=== PATIENT | male | born 1950 | race African-American/Black ===

== ENCOUNTER 2016-12-16 14:39 | Emergency (ER) | payer MEDICARE, OTHER ==
[~2016-12-16] VITALS: Ht 193 cm; Wt 106.8 kg
[~2016-12-16 14:39] MED LIST: ASPI325T6 PO; ASPIRIN 81M81 MG/TA2 PO; BACTRIM DS 8001 TAB PO; CRESTOR 10MG10 MG PO; IRON325 MG PO; MULTI VITAMINS1 TAB PO; NEXIUM 20MG20 MG PO; NITROSTAT0.4 MG/TAB SL; OSCAL 500 TAB500 MG PO; UNKNOWN CHOLESTEROL
[2016-12-16 14:47] VITALS: BP 109/78; TEMP 99.7
[2016-12-16 15:51] LABS: ADJUSTED CALCIUM 9.1 mg/dL (8.4-10.2); ALBUMIN 4.1 gm/dL (3.5-5.0); BILIRUBIN,TOTAL 1.7 mg/dL (0.0-1.0); C-REACTIVE PROTEIN 1.7 mg/dL (0.0-0.9); CALCIUM 9.2 mg/dL (8.4-10.2); POTASSIUM 4.3 mmol/L (3.4-5.0)
[2016-12-16 15:52] LABS: BASO % 0.3 % (0.0-2.0); EOS % 0.7 % (0-4.0); GRAN # 3.1 (1.4-6.5); GRAN % 53.1 % (42.2-75.2); HEMATOCRIT 43.6 % (42.0-52.0); HEMOGLOBIN 13.7 g/dl (13.5-18.0); LYMPH # 2.1 (1.2-3.4); LYMPH % 36.7 % (20.0-51.0); MEAN CELL VOLUME 92 fl (80.0-100.0); MEAN CORPUSCULAR HEMOGLOBIN 29 pg (27.0-31.0); MEAN CORPUSCULAR HGB CONC 31 g/dl (33.0-37.0); MEAN PLATELET VOLUME 10.1 fl (7.4-10.4); MONO # 0.5 (0.1-0.6); PLATELET COUNT 172 K/mm3 (130-400); RED BLOOD COUNT 4.75 M/mm3 (4.20-5.60); REDCELL DISTRIBUTION WIDTH-CV 14.6 % (11.5-14.5); WHITE BLOOD COUNT 5.8 K/mm3 (4.8-10.8)
[2016-12-16 16:51] LABS: PH 5 (5-8); SQUAMOUS EPITHELIAL 0-2 /hpf; URINE APPEARANCE Clear; URINE BACTERIA None Seen /hpf; URINE BILIRUBIN Negative (NEGATIVE); URINE BLOOD Negative (NEGATIVE); URINE COLOR Yellow; URINE GLUCOSE Negative (NEGATIVE); URINE KETONE Negative (NEGATIVE); URINE RBC 0-2 /hpf; URINE WBC 0-2 /hpf
[2016-12-16] MEDS ORDERED: VOLTAREN 75 DR75 MG PO (17:06)
[2016-12-16] MEDS ORDERED: PREDNISONE20 MG PO (17:06)
[2016-12-16 17:17] VITALS: PULSE 66
== END 2016-12-16 17:17 | disposition home or self-care (01) ==
LOC: COL.ER 14:39
PROVIDERS: Emergency Medicine
DX: M70.72 Other bursitis of hip, left hip (principal); E78.5 Hyperlipidemia, unspecified; K21.9 Gastro-esophageal reflux disease without esophagitis; I71.4 Abdominal aortic aneurysm, without rupture; Z79.82 Long term (current) use of aspirin
CPT/HCPCS: J1885; J2930; J7040

== ENCOUNTER 2017-12-04 21:10 | Inpatient (IN) | payer MEDICARE, OTHER ==
[~2017-12-04] VITALS: Ht 193 cm; Wt 108.2 kg
[~2017-12-04 21:10] MED LIST changes: +PREDNISONE20 MG PO; +VOLTAREN 75 DR75 MG PO
[2017-12-04 21:57] LABS: BASO % 0.3 % (0.0-2.0); EOS % 0.4 % (0-4.0); GRAN # 3.5 (1.4-6.5); GRAN % 51.5 % (42.2-75.2); HEMATOCRIT 43.6 % (42.0-52.0); HEMOGLOBIN 13.5 g/dl (13.5-18.0); LYMPH # 2.6 (1.2-3.4); LYMPH % 38.9 % (20.0-51.0); MEAN CELL VOLUME 94 fl (80.0-100.0); MEAN CORPUSCULAR HEMOGLOBIN 29 pg (27.0-31.0); MEAN CORPUSCULAR HGB CONC 31 g/dl (33.0-37.0); MEAN PLATELET VOLUME 10.5 fl (7.4-10.4); MONO # 0.6 (0.1-0.6); MONO % 8.6 % (1.7-9.3); PLATELET COUNT 184 K/mm3 (130-400); RED BLOOD COUNT 4.64 M/mm3 (4.20-5.60); REDCELL DISTRIBUTION WIDTH-CV 14.5 % (11.5-14.5)
[2017-12-04 22:02] LABS: INR 0.9 (0.8-3.0); PROTHROMBIN TIME 10.3 SECONDS (9.7-12.8)
[2017-12-04 22:04] LABS: BILIRUBIN,TOTAL 0.8 mg/dL (0.0-1.0); CREATININE, serum 1.2 mg/dL (0.66-1.25); POTASSIUM 4.1 mmol/L (3.4-5.0)
[2017-12-04 22:16] LABS: TROPONIN-I 0.02 ng/mL (0.000-0.034)
[2017-12-04] MEDS ORDERED: DEPO-TESTOS200 MG/M1 IM (23:03)
[2017-12-04] MEDS ORDERED: FLOMAX 0.40.4 MG/CAP PO (23:04)
[2017-12-04] MEDS ORDERED: COLACE 100100 MG/CAP PO (23:05)
[2017-12-04] MEDS ORDERED: PRILOSEC 20MG20 MG PO (23:05)
[2017-12-04] MEDS ORDERED: VIAGRA100 M1 (23:07)
[2017-12-05] VITALS (11 sets, daily range): BP systolic 98–137; BP diastolic 59–89; PULSE 60–91; TEMP 98.2–100.2
[2017-12-05 06:52] LABS: BASO % 0.3 % (0.0-2.0); GRAN # 5.8 (1.4-6.5); GRAN % 85.8 % (42.2-75.2); HEMATOCRIT 40.4 % (42.0-52.0); HEMOGLOBIN 12.7 g/dl (13.5-18.0); LYMPH # 0.6 (1.2-3.4); LYMPH % 8.7 % (20.0-51.0); MEAN CELL VOLUME 93 fl (80.0-100.0); MEAN CORPUSCULAR HEMOGLOBIN 29 pg (27.0-31.0); MEAN CORPUSCULAR HGB CONC 31 g/dl (33.0-37.0); MEAN PLATELET VOLUME 10.3 fl (7.4-10.4); MONO # 0.3 (0.1-0.6); MONO % 4.9 % (1.7-9.3); PLATELET COUNT 169 K/mm3 (130-400); RED BLOOD COUNT 4.34 M/mm3 (4.20-5.60); REDCELL DISTRIBUTION WIDTH-CV 14.5 % (11.5-14.5)
[2017-12-05 07:07] LABS: ALBUMIN 3.4 gm/dL (3.5-5.0); BILIRUBIN,TOTAL 1.7 mg/dL (0.0-1.0); CALCIUM 8.4 mg/dL (8.4-10.2); CHOLESTEROL RISK RATIO 2.1; CREATININE, serum 1.12 mg/dL (0.66-1.25); MAGNESIUM 1.6 mg/dL (1.6-2.3); POTASSIUM 3.7 mmol/L (3.4-5.0); TOTAL PROTEIN 6.1 gm/dL (6.4-8.2)
[2017-12-05 07:21] LABS: TROPONIN-I 0.035 ng/mL (0.000-0.034)
[2017-12-06] VITALS (12 sets, daily range): BP systolic 119–147; BP diastolic 64–86; PULSE 50–69; TEMP 98.1–98.8
[2017-12-06 06:25] LABS: BASO % 0.2 % (0.0-2.0); EOS # 0.1 (0.0-0.7); EOS % 1.9 % (0-4.0); GRAN # 3.4 (1.4-6.5); GRAN % 72.1 % (42.2-75.2); HEMATOCRIT 39.2 % (42.0-52.0); HEMOGLOBIN 12.6 g/dl (13.5-18.0); LYMPH # 0.8 (1.2-3.4); LYMPH % 16.3 % (20.0-51.0); MEAN CELL VOLUME 91 fl (80.0-100.0); MEAN CORPUSCULAR HEMOGLOBIN 29 pg (27.0-31.0); MEAN CORPUSCULAR HGB CONC 32 g/dl (33.0-37.0); MEAN PLATELET VOLUME 10.8 fl (7.4-10.4); MONO # 0.4 (0.1-0.6); MONO % 9.3 % (1.7-9.3); PLATELET COUNT 162 K/mm3 (130-400); REDCELL DISTRIBUTION WIDTH-CV 14.7 % (11.5-14.5)
[2017-12-06 06:35] LABS: ALBUMIN 3.3 gm/dL (3.5-5.0); BILIRUBIN,TOTAL 2.8 mg/dL (0.0-1.0); CALCIUM 8.2 mg/dL (8.4-10.2); CREATININE, serum 0.99 mg/dL (0.66-1.25); MAGNESIUM 2.1 mg/dL (1.6-2.3); POTASSIUM 3.8 mmol/L (3.4-5.0); TOTAL PROTEIN 6.1 gm/dL (6.4-8.2)
[2017-12-06] MEDS ORDERED: NITROSTAT0.4 MG/TAB SL (15:38)
== END 2017-12-06 17:50 | disposition home or self-care (01) | DRG 287 ==
LOC: COL.ER 21:10 → MEDICAL 22:37
PROVIDERS: Emergency Medicine; Internal Medicine; Nurse Practitioner
PROC: B2111ZZ Fluoroscopy of Multiple Coronary Arteries using Low Osmolar Contrast (ICD-10-PCS; principal; 2017-12-06)
PROC: B2151ZZ Fluoroscopy of Left Heart using Low Osmolar Contrast (ICD-10-PCS; 2017-12-06)
PROC: 4A023N7 Measurement of Cardiac Sampling and Pressure, Left Heart, Percutaneous Approach (ICD-10-PCS; 2017-12-06)
DX: R07.89 Other chest pain (principal); R07.9 Chest pain, unspecified; E78.5 Hyperlipidemia, unspecified; Z98.84 Bariatric surgery status; F17.210 Nicotine dependence, cigarettes, uncomplicated
CPT/HCPCS: 99232-AI; A9502; C1769; C1887; G0378; J1200; J1644; J1650; J2250; J2270; J2405; J2785; J3010; J3475; J7030; Q9967

== ENCOUNTER → 2020-11-03 | Outpatient (CLI) | payer MEDICARE, OTHER ==
[~2020-11-03] MED LIST changes: +COLACE 100100 MG/CAP PO; +DEPO-TESTOS200 MG/M1 IM; +FLOMAX 0.40.4 MG/CAP PO; +PRILOSEC 20MG20 MG PO; +VIAGRA100 M1
== END ==
LOC: COL.RAD 10:57
DX: Z01.812 Encounter for preprocedural laboratory examination (principal); I71.4 Abdominal aortic aneurysm, without rupture; Z98.890 Other specified postprocedural states
CPT/HCPCS: Q9967

== ENCOUNTER 2021-01-15 23:19 | Emergency (ER) | payer MEDICARE, OTHER ==
[~2021-01-15] VITALS: Ht 193 cm; Wt 108.6 kg
[2021-01-15 23:39] LABS: BASO % 0.4 % (0.0-2.0); EOS % 0.4 % (0-4.0); GRAN # 2.5 K/mm3 (1.4-6.5); GRAN % 46.9 % (42.2-75.2); HEMATOCRIT 43.9 % (42.0-52.0); HEMOGLOBIN 13.8 g/dl (13.5-18.0); LYMPH # 2.3 K/mm3 (1.2-3.4); LYMPH % 44.3 % (20.0-51.0); MEAN CELL VOLUME 95 fl (80.0-100.0); MEAN CORPUSCULAR HEMOGLOBIN 30 pg (27.0-31.0); MEAN CORPUSCULAR HGB CONC 31 g/dl (33.0-37.0); MEAN PLATELET VOLUME 9.8 fl (7.4-10.4); MONO # 0.4 K/mm3 (0.1-0.6); MONO % 7.6 % (1.7-9.3); PLATELET COUNT 184 K/mm3 (130-400); RED BLOOD COUNT 4.64 M/mm3 (4.20-5.60); REDCELL DISTRIBUTION WIDTH-CV 14.9 % (11.5-14.5)
[2021-01-15 23:41] LABS: PROTHROMBIN TIME 11.2 SECONDS (9.7-12.8)
[2021-01-15 23:52] LABS: ALBUMIN 3.4 gm/dL (3.4-4.8); BILIRUBIN,TOTAL 0.8 mg/dL (0.2-1.2); CREATININE, serum 1.27 mg/dL (0.72-1.25); POTASSIUM 3.5 mmol/L (3.5-4.5); TOTAL PROTEIN 6.2 gm/dL (6.2-8.1)
[2021-01-15 23:57] LABS: TROPONIN-I 0.022 ng/mL (0.00-0.033)
[2021-01-16 01:29] VITALS: TEMP 98.1
[2021-01-16 01:31] VITALS: BP 124/81; PULSE 60
== END 2021-01-16 01:30 | disposition home or self-care (01) ==
LOC: COL.ER 23:19
PROVIDERS: Emergency Medicine
DX: S09.90XA Unspecified injury of head, initial encounter (principal); E86.0 Dehydration; R55 Syncope and collapse; I10 Essential (primary) hypertension; F17.210 Nicotine dependence, cigarettes, uncomplicated
CPT/HCPCS: J7030; Q9967

== ENCOUNTER → 2021-07-30 | Outpatient (CLI) | payer MEDICARE, OTHER | LOC: COL.RAD 09:22 | DX: I71.4 Abdominal aortic aneurysm, without rupture (principal); M25.78 Osteophyte, vertebrae | CPT/HCPCS: Q9967 ==

== ENCOUNTER → 2022-08-25 | Outpatient (CLI) | payer MEDICARE, OTHER | LOC: COL.RAD 07:33 | DX: I71.43 Infrarenal abdominal aortic aneurysm, without rupture (principal) | CPT/HCPCS: Q9967 ==

== ENCOUNTER 2023-09-23 14:32 | Emergency (ER) | payer MEDICARE, OTHER ==
[~2023-09-23] VITALS: Ht 10.2 cm; Wt 104.5 kg
[2023-09-23 17:09] VITALS: BP 132/89; PULSE 80; TEMP 98
== END 2023-09-23 17:09 | disposition home or self-care (01) ==
LOC: COL.ER 14:32
DX: S70.01XA Contusion of right hip, initial encounter (principal); F17.200 Nicotine dependence, unspecified, uncomplicated; W10.9XXA Fall (on) (from) unspecified stairs and steps, initial encounter